=== PATIENT | male | born 1970 | race Caucasian/White ===

== ENCOUNTER 2019-03-06 22:11 | Emergency (ER) | payer MEDICAID, OTHER ==
[~2019-03-06] VITALS: Ht 190.5 cm; Wt 81.0 kg
[~2019-03-06 22:11] MED LIST: HYDR-4383 PO; IBUP-1984 PO
[2019-03-06 22:14] VITALS: BP 137/95
== END 2019-03-06 23:52 | disposition left against medical advice (07) ==
LOC: ER 22:12
DX: S41.102A Unspecified open wound of left upper arm, initial encounter (principal); S41.101A Unspecified open wound of right upper arm, initial encounter; S81.802A Unspecified open wound, left lower leg, initial encounter; S81.801A Unspecified open wound, right lower leg, initial encounter; L02.414 Cutaneous abscess of left upper limb; L02.413 Cutaneous abscess of right upper limb; L02.416 Cutaneous abscess of left lower limb; L02.415 Cutaneous abscess of right lower limb; Z53.21 Procedure and treatment not carried out due to patient leaving prior to being seen by health care provider; Z79.899 Other long term (current) drug therapy; X58.XXXA Exposure to other specified factors, initial encounter; Y93.89 Activity, other specified; Y92.89 Other specified places as the place of occurrence of the external cause; Y99.8 Other external cause status

== ENCOUNTER 2019-11-06 20:50 | Emergency (ER) | payer MEDICAID, OTHER ==
[~2019-11-06] VITALS: Ht 190.5 cm; Wt 86.3 kg
[~2019-11-06 20:50] MED LIST changes: -HYDR-4383 PO; -IBUP-1984 PO; +MULT-1179 PO; +NO HOME MEDS; +[UNRECOGNIZED DRUG - OTHER] PO; +thiamine tablet PO
[2019-11-06 21:20] LABS: BASOPHILS # (AUTO) 0.2 X10'3 (0-0.2); BASOPHILS % (AUTO) 0.6 % (0-1); EOSINOPHILS # (AUTO) 0.1 X10'3 (0-0.9); EOSINOPHILS % (AUTO) 0.2 % (0-6); HEMATOCRIT 30.7 % (42.0-52.0); HEMOGLOBIN 10.4 g/dl (14.0-17.9); LYMPHOCYTES # (AUTO) 5.5 X10'3 (1.1-4.8); LYMPHOCYTES % (AUTO) 14.5 % (21-51); MEAN CORPUSCULAR HEMOGLOBIN 37.2 PG (27.0-31.0); MEAN CORPUSCULAR HGB CONC 33.9 g/dL (33.0-36.5); MEAN CORPUSCULAR VOLUME 109.7 FL (78-98); MEAN PLATELET VOLUME 10.9 FL (7.4-10.4); MONOCYTES # (AUTO) 3.6 X10'3 (0-0.9); MONOCYTES % (AUTO) 9.6 % (2-12); NEUTROPHILS # (AUTO) 28.7 X10'3 (1.8-7.7); NEUTROPHILS % (AUTO) 75.1 % (42-75); PLATELET COUNT 275 X10'3 (140-440); RED CELL DISTRIBUTION WIDTH 16.1 % (11.5-14.5)
[2019-11-06 21:25] LABS: WHITE BLOOD COUNT 38.2 X10'3 (4.5-11.0)
[2019-11-06 21:40] LABS: ALANINE AMINOTRANSFERASE 45 U/L (12-78); ALBUMIN 1.8 G/DL (3.4-5.0); ALKALINE PHOSPHATASE 243 IU/L (46-116); BILIRUBIN,TOTAL 24.4 MG/DL (0.1-1.0); BLOOD UREA NITROGEN 29 MG/DL (7-18); BUN/CREATININE RATIO 18.4 (5.4-32.0); CALCIUM 8.5 MG/DL (8.5-10.1); CHLORIDE 99 MMOL/L (99-107); CREATININE 1.58 MG/DL (0.60-1.10); LIPASE 137 U/L (73-393); TOTAL CARBON DIOXIDE 20.4 MMOL/L (24-32); eGFR 47 ML/MIN
[2019-11-06] MEDS ORDERED: ondansetron 4mg rapidly disintigrating tab PO ONE (22:05)
[2019-11-06] MEDS ORDERED: HYDROcodone/acetaminophen 5mg/325mg tablet PO ONE (22:05)
[2019-11-06 22:08] LABS: ALBUMIN/GLOBULIN RATIO 0.4 (1.1-1.5); ANION GAP 16 (8-16); GLUCOSE 98 MG/DL (70-104); POTASSIUM 3.4 MMOL/L (3.5-5.1); SODIUM 135 MMOL/L (135-145); TOTAL PROTEIN 6.6 G/DL (6.4-8.2)
[2019-11-06 22:09] LABS: ASPARTATE AMINO TRANSFERASE 113 U/L (10-37)
[2019-11-06] MEDS ORDERED: POTA10TA19 PO (22:18)
[2019-11-06] MEDS ORDERED: FURO-149 PO (22:18)
[2019-11-06] MEDS ORDERED: ZOLP5TAB8 PO (22:23)
[2019-11-06 22:24] VITALS: BP 132/92
[2019-11-07 02:42] LABS: TOTAL CELLS COUNTED 100
[2019-11-07 02:44] LABS: ANISOCYTOSIS 1+
[2019-11-07 02:45] LABS: PLATELET ESTIMATE NORMAL; TARGET CELLS 1+
== END 2019-11-06 22:38 | disposition home or self-care (01) ==
LOC: ER 20:50
DX: K70.30 Alcoholic cirrhosis of liver without ascites (principal); K72.90 Hepatic failure, unspecified without coma; I10 Essential (primary) hypertension; Z79.899 Other long term (current) drug therapy
CPT/HCPCS: 36415; 80053; 83690; 85025; 99283

== ENCOUNTER 2019-11-19 03:12 | Inpatient (IN) | payer MEDICAID, OTHER ==
[~2019-11-19] VITALS: Ht 190.5 cm; Wt 86.6 kg
[2019-11-19] VITALS (23 sets, daily range): BP systolic 69–139; BP diastolic 25–55
[~2019-11-19 03:12] MED LIST changes: +FURO-149 PO; +POTA10TA19 PO
[2019-11-19] MEDS ORDERED: FURO40TA4 PO (03:42)
[2019-11-19] MEDS ORDERED: POTA10TA36 PO (03:42)
[2019-11-19] MEDS ORDERED: normal saline 1000ML IV soln IVB ONE ×2 (03:55→04:35)
[2019-11-19] MEDS ORDERED: pantoprazole 40MG/NS 100ML BAG 100 ML IV ONE (03:55)
[2019-11-19] MEDS ORDERED: ondansetron/PF 4mg/2ml inj IV ONE (03:55)
[2019-11-19] MEDS ORDERED: octreotide 100mcg/1 ml ampule IV ONE (03:55)
[2019-11-19 04:17] LABS: PARTIAL THROMBOPLASTIN TIME 65 SECONDS (22-32)
[2019-11-19 04:19] LABS: ALANINE AMINOTRANSFERASE 33 U/L (12-78); ALBUMIN 1.1 G/DL (3.4-5.0); ALKALINE PHOSPHATASE 178 IU/L (46-116); BILIRUBIN,TOTAL 17.7 MG/DL (0.1-1.0); BLOOD UREA NITROGEN 72 MG/DL (7-18); CALCIUM 8.3 MG/DL (8.5-10.1); CHLORIDE 99 MMOL/L (99-107); ETHANOL < 0.010 GM/DL (0.0-0.010); LIPASE 159 U/L (73-393)
[2019-11-19 04:21] LABS: BASOPHILS % (AUTO) 0 % (0-1); EOSINOPHILS % (AUTO) 0.1 % (0-6); LYMPHOCYTES % (AUTO) 3.6 % (21-51); MEAN CORPUSCULAR HEMOGLOBIN 35.6 PG (27.0-31.0); MEAN CORPUSCULAR HGB CONC 32.3 g/dL (33.0-36.5); MEAN CORPUSCULAR VOLUME 110.3 FL (78-98); MEAN PLATELET VOLUME 10.9 FL (7.4-10.4); MONOCYTES # (AUTO) 2.8 X10'3 (0-0.9); NEUTROPHILS # (AUTO) 24.3 X10'3 (1.8-7.7); NEUTROPHILS % (AUTO) 86.3 % (42-75); PLATELET COUNT 193 X10'3 (140-440); RED BLOOD COUNT 1.82 X10'6 (4.70-6.10); RED CELL DISTRIBUTION WIDTH 16.4 % (11.5-14.5)
--- NOTE | 2019-11-19 04:26 | NUR ---
bare hugger applied due to low temp
[2019-11-19 04:27] LABS: WHITE BLOOD COUNT 28.2 X10'3 (4.5-11.0)
[2019-11-19 04:28] LABS: BUN/CREATININE RATIO 12.5 (5.4-32.0); CREATININE 5.74 MG/DL (0.60-1.10); HEMOGLOBIN 6.5 g/dl (14.0-17.9); eGFR 11 ML/MIN
--- NOTE | 2019-11-19 04:30 | NUR ---
MD Berg notified of 92.0 and 93.0 temp after bare hugger applied.
[2019-11-19 04:34] LABS: ASPARTATE AMINO TRANSFERASE 81 U/L (10-37)
[2019-11-19 04:35] LABS: ALBUMIN/GLOBULIN RATIO 0.3 (1.1-1.5); ANION GAP 19 (8-16); GLUCOSE 60 MG/DL (70-104); POTASSIUM 4.1 MMOL/L (3.5-5.1); SODIUM 132 MMOL/L (135-145); TOTAL PROTEIN 4.5 G/DL (6.4-8.2)
[2019-11-19] MEDS ORDERED: folic acid 1mg tablet PO ONE (04:35)
[2019-11-19] MEDS ORDERED: phytonadione inj. 10 MG in normal saline 100ml IV soln 99 ML IV ONE (04:35)
[2019-11-19] MEDS ORDERED: thiamine inj. 100 MG in normal saline 100ml IV soln 100 ML IV ONE (04:35)
[2019-11-19 04:38] LABS: CLARITY,URINE CLOUDY (Clear); COLOR,URINE AMBER (Yellow); GLUCOSE, URINE 250 mg/dl (Neg); KETONES,URINE TRACE mg/dl (Neg); LEUKOCYTE ESTERASE ,URINE SMALL (Neg); NITRITES, URINE POSITIVE (Neg); OCCULT BLOOD,URINE SMALL (Neg); PROTEIN,URINE 100 mg/dl (Neg)
[2019-11-19 04:39] LABS: TOTAL CARBON DIOXIDE 14.5 MMOL/L (24-32)
[2019-11-19 04:40] LABS: UA COLLECTION TYPE STRAIGHT CATH
[2019-11-19] MEDS ORDERED: thiamine 100mg/ml 2ml inj. IV ONE (04:50)
--- NOTE | 2019-11-19 05:03 | NUR ---
MD Berg notified of BP.
--- NOTE | 2019-11-19 05:15 | NUR ---
MD ordered to setup for central line insertion.
[2019-11-19 05:19] LABS: LACTIC SEPSIS 15.4 MMOL/L (0.4-2.0)
[2019-11-19] MEDS ORDERED: dextrose 50%-water 50ml dispensing syringe IV ONE ×2 (05:45)
--- NOTE | 2019-11-19 05:50 | NUR ---
Notified of 28 accucheck blood glucose. 1 amp of d50 ordered.
[2019-11-19] MEDS ORDERED: normal saline 1000ML IV soln IV ONE (05:55)
[2019-11-19] MEDS ORDERED: piperacillin/tazo 3.375gm/50ml 50 ML IV ONE (05:55)
--- NOTE | 2019-11-19 06:24 | NUR ---
PAGED RT AGAIN AT 0624 FOR SKYLA
[2019-11-19 06:38] LABS: TOTAL CELLS COUNTED 100
[2019-11-19 06:39] LABS: ANISOCYTOSIS 1+; GIANT PLATELET FEW; LARGE PLATELETS FEW; PLATELET ESTIMATE NORMAL; POLYCHROMASIA 1+; SCHISTOCYTES FEW; TARGET CELLS 2+; TOXIC GRANULATION 2+
[2019-11-19 06:46] LABS: ABG BASE EXCESS -17.9 mmol/L (-2.0-3.0); ABG OXYGEN SATURATION 95.8 % (95-98); ABG PCO2 (T) 16.9 mmHg (35.0-45.0); ABG PH (T) 7.277 (7.350-7.450); ABG PO2 (T) 77.6 mmHg (83-108); ALLEN'S TEST POSITIVE; FCOHb 2.4 % (0.5-1.5); FMetHb 0.5 % (0.3-1.12); PATIENT TEMPERATURE 33.8; TOTAL HEMOGLOBIN 5.5 G/dl (14.0-17.9)
--- NOTE | 2019-11-19 06:52 | NUR ---
CRITICAL 2 HOUR LACTIC 14.7 MD ESPINAL NOTIFED
[2019-11-19] MEDS ORDERED: normal saline 1000ml 1,000 ML IV SCH (06:56)
[2019-11-19] MEDS ORDERED: octreotide inj. 1,250 MCG in normal saline 250ml IV soln 243.75 ML IV SCH (07:00)
[2019-11-19] MEDS ORDERED: acetaminophen 650mg rectal suppository RC PRN (07:00)
[2019-11-19] MEDS ORDERED: ondansetron/PF 4mg/2ml inj IV PRN (07:00)
[2019-11-19] MEDS ORDERED: glucagon, human recombinant 1mg kit SUBCUT PRN (07:00)
[2019-11-19] MEDS ORDERED: LIDOcaine 2% 10ml TOPICAL JELLY (Urojet) TP ONE (07:00)
[2019-11-19] MEDS ORDERED: dextrose 50%-water 50ml dispensing syringe IV PRN ×2 (07:00)
[2019-11-19] MEDS ORDERED: dextrose ORAL solution 15 GM/59 ML bottle PO PRN ×2 (07:00)
[2019-11-19 07:41] LABS: HYPERSEGMENTED NEUTROPHILS 1+
[2019-11-19 07:43] LABS: AMYLASE 28 U/L (25-115); TROPONIN I < 0.04 NG/ML (0.0-0.05)
[2019-11-19] MEDS: lactulose 20gm/30ml cup PO SCH ×2 (08:00→16:00)
[2019-11-19] MEDS ORDERED: piperacillin/tazo 3.375gm/50ml 50 ML IV SCH ×2 (08:00→20:00)
[2019-11-19 08:50] LABS: BASOPHILS % (AUTO) 0.1 % (0-1); EOSINOPHILS % (AUTO) 0 % (0-6); LYMPHOCYTES # (AUTO) 0.8 X10'3 (1.1-4.8); LYMPHOCYTES % (AUTO) 2.5 % (21-51); MEAN CORPUSCULAR HEMOGLOBIN 34.5 PG (27.0-31.0); MEAN CORPUSCULAR HGB CONC 31.6 g/dL (33.0-36.5); MEAN PLATELET VOLUME 11.4 FL (7.4-10.4); MONOCYTES # (AUTO) 3.1 X10'3 (0-0.9); MONOCYTES % (AUTO) 9.8 % (2-12); NEUTROPHILS # (AUTO) 27.5 X10'3 (1.8-7.7); NEUTROPHILS % (AUTO) 87.6 % (42-75); PLATELET COUNT 162 X10'3 (140-440); RED BLOOD COUNT 1.99 X10'6 (4.70-6.10); RED CELL DISTRIBUTION WIDTH 17.7 % (11.5-14.5)
[2019-11-19 08:53] LABS: WHITE BLOOD COUNT 31.4 X10'3 (4.5-11.0)
[2019-11-19 08:54] LABS: HEMATOCRIT 21.7 % (42.0-52.0); HEMOGLOBIN 6.8 g/dl (14.0-17.9)
[2019-11-19 09:06] LABS: ALANINE AMINOTRANSFERASE 53 U/L (12-78); ALBUMIN 1.1 G/DL (3.4-5.0); ALKALINE PHOSPHATASE 163 IU/L (46-116); ANION GAP 22 (8-16); BILIRUBIN,TOTAL 16.9 MG/DL (0.1-1.0); BLOOD UREA NITROGEN 72 MG/DL (7-18); CALCIUM 8.1 MG/DL (8.5-10.1); CHLORIDE 100 MMOL/L (99-107); SODIUM 132 MMOL/L (135-145)
[2019-11-19 09:07] LABS: ALBUMIN/GLOBULIN RATIO 0.4 (1.1-1.5); ASPARTATE AMINO TRANSFERASE 204 U/L (10-37); BUN/CREATININE RATIO 12.7 (5.4-32.0); CREATININE 5.66 MG/DL (0.60-1.10); GLUCOSE 64 MG/DL (70-104); TOTAL PROTEIN 4.1 G/DL (6.4-8.2); eGFR 11 ML/MIN
[2019-11-19 09:09] LABS: TOTAL CARBON DIOXIDE 10.1 MMOL/L (24-32)
[2019-11-19 09:10] LABS: PARTIAL THROMBOPLASTIN TIME 83 SECONDS (22-32)
[2019-11-19] MEDS ORDERED: sodium bicarbonate (8.4%) inj. 75 MEQ in dextrose 5%-water 500 ML IV SCH (09:25)
--- NOTE | 2019-11-19 09:37 | NUR ---
Report to [facility]. Critical labs WBC 31, H/H 6.8/21.1, CO2 10.1, reported to supervisor in chargeGERRY Gautam, Dr. Pinedo in CICU ready to receive pt. [facility], protonix gtt, zosyn, dee. Belongings with pt.
[2019-11-19] MEDS ORDERED: 1/2 NORMAL SALINE IV SCH (09:45)
[2019-11-19] MEDS ORDERED: SODIUM BICARBONATE IV SCH (09:45)
[2019-11-19] MEDS ORDERED: DEXTROSE 5% IV SCH (09:45)
[2019-11-19] MEDS ORDERED: NORepinephrine 8mg/ 250ml NS 250 ML IV ONE (10:03)
[2019-11-19] MEDS: NORepinephrine 8mg/ 250ml NS 250 ML IV SCH ×3 (10:12→19:19)
[2019-11-19] MEDS ORDERED: sodium bicarbonate (8.4%) inj. 75 MEQ in sodium chloride 0.45% 500ml 500 ML IV SCH (10:12)
[2019-11-19] MEDS: pantoprazole 40MG/NS 100ML BAG 100 ML IV SCH ×3 (10:40→19:58)
[2019-11-19] MEDS: sodium bicarbonate (8.4%) inj. 75 MEQ in dextrose 5% water 500ml 500 ML IV SCH ×2 (10:40→16:50)
--- NOTE | 2019-11-19 13:29 | NUR ---
Pt. brother, Darinel Lentz called stating he was pt's P.O.A. Per Darinel's request he was provided with the unit fax number by this RN, Darinel stated he would fax over the legal documentation regarding pt.'s election to make Darinel AVILA. As of this morning, Dr. Pinedo spoke with patient's mother who stated the patient would not want intubation or CPR, yet pressors and medications are okay. mainframe programmer analyst, Maryann Gautam notified.
[2019-11-19 16:50] LABS: HEMATOCRIT 25.2 % (42.0-52.0); HEMOGLOBIN 8.1 g/dl (14.0-17.9); MEAN CORPUSCULAR HEMOGLOBIN 33.9 PG (27.0-31.0); MEAN CORPUSCULAR HGB CONC 32.2 g/dL (33.0-36.5); MEAN CORPUSCULAR VOLUME 105.2 FL (78-98); MEAN PLATELET VOLUME 11.3 FL (7.4-10.4); PLATELET COUNT 187 X10'3 (140-440); RED CELL DISTRIBUTION WIDTH 20.3 % (11.5-14.5)
[2019-11-19 16:54] LABS: WHITE BLOOD COUNT 39.4 X10'3 (4.5-11.0)
[2019-11-19 17:03] LABS: ALBUMIN 1.1 G/DL (3.4-5.0); ANION GAP 26 (8-16); BLOOD UREA NITROGEN 73 MG/DL (7-18); CALCIUM 7.6 MG/DL (8.5-10.1); CHLORIDE 98 MMOL/L (99-107); SODIUM 133 MMOL/L (135-145)
[2019-11-19 17:04] LABS: BUN/CREATININE RATIO 12.3 (5.4-32.0); CREATININE 5.94 MG/DL (0.60-1.10); GLUCOSE 70 MG/DL (70-104); POTASSIUM 5.6 MMOL/L (3.5-5.1); eGFR 10 ML/MIN
[2019-11-19 17:07] LABS: TOTAL CARBON DIOXIDE 9.4 MMOL/L (24-32)
[2019-11-19] MEDS ORDERED: FURO-149 PO (17:14)
[2019-11-19] MEDS ORDERED: POTA10CA44 PO (17:14)
[2019-11-19] MEDS ORDERED: sodium chloride inj. 154 MEQ in Dextrose 10%-water IV solution 961.5 ML IV SCH (17:40)
--- NOTE | 2019-11-19 18:00 | NUR ---
Electrolyte imbalances, critical lab values, WBCs and pt.'s decline in mental status reported to Dr. Pinedo/[facility] DOCTOR. Pt. limited code status per Shahida determined by his conversation with the pt's mother who is the primary decision maker at the time and has confirmed being so. Pt.'s brother, Darinel said he did not have legal documentation to fax to us proving Darinel s the pt's POA.
--- NOTE | 2019-11-19 18:31 | NUR ---
Patient in room CICU 2010. I have received report from GERRY Morin and had the opportunity to ask questions and assume patient care.
--- NOTE | 2019-11-19 18:32 | NUR ---
Patient unresponsive to verbal and pain stimuli, respiratory rate in the 30's labored. Levophed increased to maintain MAP greater than 60 per protocol.
--- NOTE | 2019-11-19 19:19 | NUR ---
Sirisha Gudino NP ordered ABG. At bedside to view results. Will contact family.
[2019-11-19 19:26] LABS: ABG BASE EXCESS -21.7 mmol/L (-2.0-3.0); ABG PCO2 (T) 18.6 mmHg (35.0-45.0); ABG PH (T) 7.119 (7.350-7.450); ABG PO2 (T) 75.8 mmHg (83-108); ALLEN'S TEST POSITIVE; FCOHb 0.3 % (0.5-1.5); FMetHb 0.5 % (0.3-1.12); FO2Hb 90.3 % (94-100); PATIENT TEMPERATURE 36.3
[2019-11-19] MEDS ORDERED: LORazepam 2 mg/ml vial IV PRN (20:20)
[2019-11-19] MEDS ORDERED: morphine 10mg/ml inj. IV PRN (20:20)
--- NOTE | 2019-11-19 22:24 | NUR ---
RN IS TO DOCUMENT YES TO ALL APPLICABLE AREAS Pronouncement of : 1. Time Physician Notified: August SHERITA Gudino [id number] 2. Date of :11/19/2019 3. Time of : 2217 4. DNR/Withdraw life support documented: YES 5. Monitor strip has been placed on chart: YES 6. Assessment process is of one-minute duration and includes following criteria: a) Patient is unresponsive to all stimuli: yes b) Pupils fixed and non-reactive: yes c) Auscultation of precordium reveals absence of heart tones: yes d) Auscultation of lungs reveals absence of breath sounds: yes e) Absence of blood pressure / all vital signs: yes f) QRS complexes are not present on monitor / EKG strip: yes g) Pacer spikes without capture: 4. Comments: Brothers at bedside prior to . Mother and sister contacted and updated.
--- NOTE | 2019-11-19 22:54 | NUR ---
[facility] network called : Reference #: [id number]
--- NOTE | 2019-11-19 22:55 | NUR ---
Attempted to call patients sister Marie as requested multiple times. Busy signal.
--- NOTE | 2019-11-19 23:17 | NUR ---
[facility]
--- NOTE | 2019-11-20 00:25 | NUR ---
[facility] here to collect patient. Patient did not have any personal belongings.
[2019-11-20] MEDS ORDERED: potassium chloride 10mEq ER tablet PO SCH (08:00)
[2019-11-20] MEDS ORDERED: furosemide 40mg tablet PO SCH (08:00)
[2019-11-21] MEDS ORDERED: lactulose 20gm/30ml cup PO PRN (07:00)
== END 2019-11-19 22:20 | disposition expired | DRG 279 ==
LOC: ER 03:13 → ED HOLD 06:56 → CICU 2S 09:33
PROVIDERS: ADMIT Internal Medicine Critical Care Medicine; ATTEND Internal Medicine Critical Care Medicine
PROC: 30233N1 Transfusion of Nonautologous Red Blood Cells into Peripheral Vein, Percutaneous Approach (ICD-10-PCS; principal; 2019-11-19)
PROC: 06HY33Z Insertion of Infusion Device into Lower Vein, Percutaneous Approach (ICD-10-PCS; 2019-11-19)
PROC: B54BZZA Ultrasonography of Right Lower Extremity Veins, Guidance (ICD-10-PCS; 2019-11-19)
DX: K72.90 Hepatic failure, unspecified without coma (principal); N17.9 Acute kidney failure, unspecified; I95.9 Hypotension, unspecified; D68.9 Coagulation defect, unspecified; E87.2 Acidosis; K92.2 Gastrointestinal hemorrhage, unspecified; K70.31 Alcoholic cirrhosis of liver with ascites; D50.0 Iron deficiency anemia secondary to blood loss (chronic); Z66 Do not resuscitate; Z51.5 Encounter for palliative care
CPT/HCPCS: 36415; 36430; 36600; 71045; 80048; 80053; 80320; 81003; 82140; 82150; 82803; 82948; 83036; 83605; 83690; 84484; 85018; 85025; 85027; 85610; 85730; 86885; 86900; 86901; 86920; 87040; 87088; 93005; 96365; 96375; 99291; C9113; G0378; J2270; J2354; J2405; J2543; J3411; J3430; J7030; J7050; J7131; P9016